=== PATIENT | male | born 1975 | race Caucasian/White ===

== ENCOUNTER 2017-07-12 05:57 | Emergency (ER) | payer BC ==
[2017-07-12] MEDS ORDERED: ASPIRIN 81 MG TABLET, CHEWABLE PO ONE (06:09)
[2017-07-12 06:35] LABS: ABSOLUTE EOSINOPHILS # (AUTO) 0.1 10^3/uL (0.0-0.6); ABSOLUTE MONOCYTES (AUTO) 0.6 10^3/uL (0.1-1.4); ABSOLUTE NEUT (AUTO) 4.5 10^3/uL (1.7-8.2); BASOPHILS % (AUTO) 0.6 % (0-2); EOSINOPHILS % (AUTO) 1.5 % (0-6); HEMOGLOBIN 16.2 g/dL (13.5-17.0); LYMPHOCYTES % (AUTO) 27.9 % (13-45); MEAN CORPUSCULAR HEMOGLOBIN 32.2 pg (27.0-33.4); MEAN CORPUSCULAR HGB CONC 34.5 g/dL (32.0-36.0); MEAN CORPUSCULAR VOLUME 93 fl (80-97); MONOCYTES % (AUTO) 8.7 % (3-13); PLATELET COUNT 214 10^3/uL (150-450); RED BLOOD COUNT 5.04 10^6/uL (4.35-5.55); RED CELL DISTRIBUTION WIDTH 12.5 % (11.5-14.0); SEGMENTED NEUTROPHILS % (AUTO) 61.3 % (42-78); TOTAL CELLS COUNTED % (AUTO) 100 %; WHITE BLOOD COUNT 7.3 10^3/uL (4.0-10.5)
[2017-07-12 06:48] LABS: ALANINE AMINOTRANSFERASE 45 U/L (21-72); ALBUMIN 4.6 g/dL (3.5-5.0); ALKALINE PHOSPHATASE 46 U/L (38-126); ANION GAP 9 (5-19); ASPARTATE AMINO TRANSFERASE 43 U/L (17-59); BILIRUBIN,DIRECT 0.1 mg/dL (0.0-0.4); BILIRUBIN,TOTAL 0.8 mg/dL (0.2-1.3); BLOOD UREA NITROGEN 23 mg/dL (7-20); CALCIUM 9.6 mg/dL (8.4-10.2); CARBON DIOXIDE 29 mmol/L (22-30); CHLORIDE 103 mmol/L (98-107); CREATINE KINASE 172 U/L (55-170); GLUCOSE 95 mg/dL (75-110); POTASSIUM 4.4 mmol/L (3.6-5.0); TOTAL PROTEIN 7.5 g/dL (6.3-8.2)
--- NOTE | 2017-07-12 06:59 | RADIOLOGY REPORT (SQ) ---
EXAM DESCRIPTION: CHEST SINGLE VIEW CLINICAL HISTORY: 41 years Male, CP COMPARISON: None NUMBER OF VIEWS/TECHNIQUE: 1/AP LIMITATIONS: None. FINDINGS: Normal lung volume, clear parenchyma, normal cardiac silhouette, and intact bony thorax. IMPRESSION: No acute cardiopulmonary findings.
[2017-07-12 07:00] LABS: CREATINE KINASE MB 1.84 ng/mL (<4.55)
[2017-07-12 07:01] LABS: TROPONIN I < 0.012 ng/mL
--- NOTE | 2017-07-12 07:10 | EKG REPORT ---
SEVERITY:- OTHERWISE NORMAL ECG - SINUS RHYTHM ATRIAL PREMATURE COMPLEX : Confirmed by: Levi Joyce MD 12-Jul-2017 07:10:18
--- NOTE | 2017-07-12 07:42 | ER Document Report ---
ED General - General Mode of Arrival: Ambulatory Information source: Patient TRAVEL OUTSIDE OF THE [place] IN LAST 30 DAYS: No - HPI Onset: This morning Onset/Duration: Sudden Relieved by: Sitting <HAYES CHARLES - Last Filed: 07/12/17 08:56> <FRITZ COONEY - Last Filed: 07/12/17 15:18> - General Chief Complaint: Chest Pain Stated Complaint: DIZZY, BLURRY VISION Time Seen by Provider: 07/12/17 06:57 Notes: Patient is a 41 year old male with no significant medical history presents to the emergency department complaining of multiple symptoms including chest pain, blurry vision, diaphoresis and dizziness onset this morning. Patient describes his chest pain as chest discomfort which radiates into his back and epigastric area. Patient states that when he got out of bed this morning his symptoms were suddenly onset, lasting around 15 minutes, which was relieved when he sat down. Patient also complained of some bilateral numbness in his toes. Patient states he takes Zyrtec for allergies. Patients PCP is Dr. Dwyer. (HAYES CHARLES) - Related Data Allergies/Adverse Reactions: No Known Allergies Allergy (Unverified 07/12/17 06:04) Past Medical History - General Information source: Patient - Social History Smoking Status: Never Smoker Chew tobacco use (# tins/day): No Frequency of alcohol use: None Drug Abuse: None Family History: Hypertension Patient has suicidal ideation: No Patient has homicidal ideation: No <HAYES CHARLES - Last Filed: 07/12/17 08:56> - Social History Family History: denies: CAD, CVA, DM <FRITZ COONEY - Last Filed: 07/12/17 15:18> Review of Systems - Review of Systems Constitutional: See HPI, Diaphoresis EENT: See HPI, Blurred vision Cardiovascular: See HPI, Chest pain, Dizziness Respiratory: No symptoms reported Gastrointestinal: No symptoms reported Genitourinary: No symptoms reported Male Genitourinary: No symptoms reported Musculoskeletal: No symptoms reported Skin: No symptoms reported Hematologic/Lymphatic: No symptoms reported Neurological/Psychological: No symptoms reported -: Yes All other systems reviewed and negative <HAYES CHARLES - Last Filed: 07/12/17 08:56> Physical Exam <HAYES CHARLES - Last Filed: 07/12/17 08:56> <FRITZ COONEY - Last Filed: 07/12/17 15:18> - Vital signs Vitals: Temp Pulse Resp BP Pulse Ox 97.7 F 60 18 130/71 H 99 07/12/17 06:03 07/12/17 06:03 07/12/17 06:03 07/12/17 06:03 07/12/17 06:03 - Notes Notes: GENERAL: Alert, interacts well. No acute distress. HEAD: Normocephalic, atraumatic. EYES: Pupils equal, round, and reactive to light. Extraocular movements intact. ENT: Oral mucosa moist, tongue midline. Nares patent, no nasal septal hematoma, Slight amount of injection in left TM. NECK: Full range of motion. Supple. Trachea midline. LUNGS: Clear to auscultation bilaterally, no wheezes, rales, or rhonchi. No respiratory distress. HEART: Regular rate and rhythm. No murmurs, gallops, or rubs. ABDOMEN: Soft, non-tender. Non-distended. Bowel sounds present in all 4 quadrants. EXTREMITIES: Moves all 4 extremities spontaneously. No edema, radial and dorsalis pedis pulses 2/4 bilaterally. No cyanosis. NEUROLOGICAL: Alert and oriented x3. Normal speech. Biceps and patellar DTRs 2+ bilaterally. Equal cannery worker strength bilaterally. PSYCH: Normal affect, normal mood. SKIN: Warm, dry, normal turgor. No rashes or lesions noted. (HAYES CHARLES) Course - Laboratory Result Diagrams: 07/12/17 06:15 07/12/17 06:15 <HAYES CHARLES - Last Filed: 07/12/17 08:56> - Laboratory Result Diagrams: 07/12/17 06:15 07/12/17 06:15 <FRITZ COONEY - Last Filed: 07/12/17 15:18> - Re-evaluation Re-evalutation: 07/12/17 10:21 CBC unremarkable, CMP grossly unremarkable, BUN only slightly elevated at 23 otherwise unremarkable, cardiac enzymes negative x 2, chest x-ray shows no acute process, EKG is nonischemic. Patient has no more chest pain. Patient is low risk by a HEART score, safe for outpatient follow-up. Sees Dr. Dwyer is his primary care physician, will see him for an outpatient stress test. 07/12/17 10:[address] Dwyer and he agrees to see the patient at 10 AM tomorrow morning to arrange an outpatient stress test. (FRITZ COONEY) - Vital Signs Vital signs: Temp Pulse Resp BP Pulse Ox 97.7 F 60 19 109/69 97 07/12/17 06:03 07/12/17 06:03 07/12/17 11:01 07/12/17 11:01 07/12/17 11:01 - Laboratory Laboratory results interpreted by me: 07/12/17 06:15 BUN 23 H Creatine Kinase 172 H - EKG Interpretation by Me Additional EKG results interpreted by me: 07/12/17 10:22 EKG shows sinus rhythm at a rate of 60, no ST segment elevations or depressions , no T-wave inversion, nonspecific T-wave flattening in aVL, 1 PAC, normal axis , interventricular conduction delay per my interpretation. 07/12/17 11:28 Repeat EKG shows sinus rhythm at a rate of 66, normal axis, normal intervals, no ST segment elevations or depressions, no T-wave inversions per my interpretation. (FRITZ COONEY) Discharge <HAYES CHARLES - Last Filed: 07/12/17 08:56> <FRITZ COONEY - Last Filed: 07/12/17 15:18> - Discharge Clinical Impression: Chest pain with low risk for cardiac etiology Condition: Stable Disposition: HOME, SELF-CARE Additional Instructions: Chest Pain of Unclear Cause The exact cause of your chest pain isn't clear. Fortunately, there is no evidence of a dangerous medical condition. Further testing may be required to find the source of the pain. Most often, we find that this pain is coming from the chest wall -- the muscles or rib joints in the chest. But chest pain can come from the lung and lung lining, the esophagus, the heart valves or heart lining, and even the stomach or gallbladder. Rest. Eat lightly until the pain is gone. We may prescribe medicine for pain and inflammation. You should call the physician immediately if the pain radiates to the shoulder, jaw or arms; if you start to run a fever or develop a cough; or if you develop shortness of breath, or other new or alarming symptoms. Please see Dr. Dwyer in his office tomorrow morning at 10 AM to arrange a stress test. Referrals: MELINDA DWYER MD [Primary Care Provider] - 07/13/17 10:00 am Scribe Attestation: 07/12/17 15:18 I personally performed the services described in the documentation, reviewed and edited the documentation which was dictated to the scribe in my presence, and it accurately records my words and actions. (FRITZ COONEY) Scribe Documentation - Scribe Written by Wero:: Wero Milian, 07/12/2017 07:45 acting as scribe for :: Ros <HAYES CHARLES - Last Filed: 07/12/17 08:56>
[2017-07-12 11:56] VITALS: BP 109/69
--- NOTE | 2017-07-12 13:55 | EKG REPORT ---
SEVERITY:- NORMAL ECG - SINUS RHYTHM : Confirmed by: Levi Joyce MD 12-Jul-2017 13:54:41
== END 2017-07-12 11:50 | disposition home or self-care (01) ==
LOC: ER 05:57
DX: R07.9 Chest pain, unspecified (principal); H53.8 Other visual disturbances; R61 Generalized hyperhidrosis; R42 Dizziness and giddiness; R20.0 Anesthesia of skin; Z79.899 Other long term (current) drug therapy
CPT/HCPCS: 36415; 71045; 80053; 82550; 82553; 84484; 85025; 93005; 93010; 99285